=== PATIENT | male | born 1975 | race Caucasian/White ===

== ENCOUNTER 2017-04-14 16:45 | Emergency (ER) | payer OTHER ==
[2017-04-14 17:11] VITALS: BP 117/71
--- NOTE | 2017-04-14 17:11 | UC ---
Abdominal Pain Male HPI - HPI Summary HPI Summary: 41 YEAR OLD MALE WITH A HISTORY OF CROHNS DISEASE AND BOWEL RESECTION PRESENTS WITH COMPLAINS OF SEVERE RLQ PAIN. - History of Current Complaint Chief Complaint: UCGI Stated Complaint: ABD PAIN Time Seen by Provider: 04/14/17 17:10 Hx Obtained From: Patient Onset/Duration: Sudden Onset Severity Initially: Moderate Severity Currently: Moderate Pain Scale Used: 0-10 Numeric - 7 Location: Discrete At: RLQ - Allergies/Home Medications Allergies/Adverse Reactions: Allergies Allergy/AdvReac Type Severity Reaction Status Date / Time Cat Hair Extract Allergy Unknown Verified 04/14/17 18:26 Reaction Details Dust Mite Extract Allergy Unknown Verified 04/14/17 18:26 Reaction Details carrots Allergy Airway Uncoded 04/14/17 18:26 Obstruction celery Allergy Airway Uncoded 04/14/17 18:26 Obstruction parsley Allergy Airway Uncoded 04/14/17 18:26 Obstruction radish Allergy Unknown Uncoded 04/14/17 18:26 Reaction Details Home Medications: Home Medications Cetirizine* [ZyrTEC 10 MG TAB*] 1 tab PO BEDTIME 04/14/17 [History Confirmed ] Fluticas/Salmet 115/21 HFA(NF) [Advair HFA 115/21 (NF)] 1 puff BOTH NARES BID [History Confirmed 04/14/17] Folic Acid TAB* [Folvite TAB*] 1 tab PO BEDTIME 04/14/17 [History Confirmed ] Levothyroxine TAB* [Synthroid 150 MCG TAB*] 1 tab PO BEDTIME 04/14/17 [History Confirmed 04/14/17] Magnesium Hydroxide LIQ* [Milk of Magnesia LIQ*] 1 udc PO TID PRN 04/14/17 [ History Confirmed 04/14/17] Mesalamine CAP (NF) [Pentasa(NF)] 3 tab PO BID 04/14/17 [History Confirmed 04/14] Montelukast Sodium TAB* [Singulair 10 MG TAB*] 1 tab PO BEDTIME 04/14/17 [ History Confirmed 04/14/17] Multiple Vitamins W/ Minerals [Multivitamin Adults] 1 tab PO BEDTIME 04/14/17 [ History Confirmed 04/14/17] Psyllium [Metamucil] 3 tab PO BID 04/14/17 [History Confirmed 04/14/17] PMH/Surg Hx/FS Hx/Imm Hx Previously Healthy: Yes - Surgical History Surgical History: Yes Surgery Procedure, Year, and Place: SURGERIES FOR SHIVAM'S DIEASES (RESECTION OF ILIUM AND SECOND ONE WAS TO REPAIR AN ADHESIO) - spring - Social History Alcohol Use: None Substance Use Type: None Smoking Status (MU): Never Smoked Tobacco Review of Systems Constitutional: Negative Skin: Negative Eyes: Negative ENT: Negative Respiratory: Negative Cardiovascular: Negative Gastrointestinal: Abdominal Pain - RLQ PAIN Genitourinary: Negative Motor: Negative Neurovascular: Negative Musculoskeletal: Negative Neurological: Negative Psychological: Negative All Other Systems Reviewed And Are Negative: Yes Physical Exam Triage Information Reviewed: Yes Vital Signs: Initial Vital Signs Temp 36.5 C 04/14/17 17:00 Pulse 68 04/14/17 17:00 Resp 16 04/14/17 17:00 BP 117/71 04/14/17 17:00 Pulse Ox 100 04/14/17 17:00 Vital Signs Reviewed: Yes Eye Exam: Normal ENT Exam: Normal Dental Exam: Normal Neck exam: Normal Neck: Positive: 1 Respiratory Exam: Normal Cardiovascular Exam: Normal Abdomen Description: Positive: Other: - RLQ Musculoskeletal Exam: Normal Neurological Exam: Normal Psychological Exam: Normal Skin Exam: Normal Abd Pain Male Course/Dx - Differential Dx/Clinical Impression Provider Diagnoses: RLQ PAIN Discharge - Discharge Plan Condition: Stable Disposition: OTHER Discharge Disposition Comment: PLEASE GO TO ER TO RULE OUT BOWEL OBSTRUCTION. Patient Education Materials: Acute Abdominal Pain (ED) Referrals: Cary Cruz MD [Primary Care Provider] - Additional Instructions: PLEASE GO TO ER TO RULE OUT BOWEL OBSTRUCTION.
== END 2017-04-14 17:23 ==
LOC: UCEAST 16:45
DX: R10.31 Right lower quadrant pain (principal); K50.90 Crohn's disease, unspecified, without complications
CPT/HCPCS: 99211; G0463

== ENCOUNTER 2017-04-14 17:37 | Observation (INO) | payer OTHER ==
[2017-04-14] MEDS ORDERED: Ondansetron INJ* 2 MG/ML VIAL IV ONE ×2 (18:16→20:24)
[2017-04-14] MEDS ORDERED: NS 0.9% 1000 ML* 1,000 ML IV ONE ×2 (18:16→20:22)
[2017-04-14] MEDS ORDERED: HYDROmorphone INJ* 1 MG/ML CARPUJECT SYRINGE IV ONE ×2 (18:16→20:22)
[2017-04-14 19:07] LABS: Hematocrit 51 % (42-52); Hemoglobin 17.6 g/dl (14.0-18.0); Mean Corpuscular HGB Conc 35 g/dl (31-36); Mean Corpuscular Hemoglobin 29 pg (27-31); Mean Corpuscular Volume 85 fL (80-94); Mean Platelet Volume 8 um3 (7.4-10.4); Red Blood Count 5.99 10^6/ul (4.0-5.4); Red Cell Distribution Width 14 % (10.5-15); White Blood Count 11.9 10^3/ul (3.5-10.8)
[2017-04-14 19:20] LABS: Albumin 5.1 g/dL (3.2-5.2); BUN/Creatinine Ratio 12.7 (8-20); C Reactive Protein 5.13 mg/L (< 5.00); Calcium 10.4 mg/dL (8.6-10.3); EGFR African American 81.5 (>60); EGFR Non-African American 63.4 (>60); Globulin 3.5 g/dL (2-4); Potassium 3.8 mmol/L (3.5-5.0); Total Bilirubin 0.8 mg/dL (0.2-1.0); Total Protein 8.6 g/dL (6.4-8.9)
[2017-04-14] MEDS ORDERED: Iohexol 300* (CONTRAST) 10 ML SDV IV ONE (20:59)
--- NOTE | 2017-04-14 21:17 | ED ---
John Sheffield Abhishek, scribed for Mukesh Pereyra MD on 04/14/17 at 1824 . Abdominal Pain/Male - HPI Summary HPI Summary: This patient is a 41 year old M presenting to [facility] accompanied by female with a chief complaint of abd pain since 1743. The CC is described as getting gradually worse, diffusive, worse since today, dull. The patient rates the pain 5/10 in severity Symptoms aggravated by nothing. Symptoms alleviated by nothing. Patient reports N/V onset of this afternoon, and chills. Patient denies dysuria, and hematochezia. PMHx includes Crohns disease. - History of Current Complaint Chief Complaint: EDNauseaVomitDiarrh Stated Complaint: ABD PAIN/VOMITING-SENT BY CC Time Seen by Provider: 04/14/17 17:52 Hx Obtained From: Patient Onset/Duration: Gradual Onset - this afternoon, Lasting Hours - since this afternoon, Still Present Timing: Constant Severity Initially: Moderate Severity Currently: Moderate Pain Intensity: 5 Pain Scale Used: 0-10 Numeric Location: Diffuse Character: Dull Aggravating Factor(s): Nothing Alleviating Factor(s): Nothing Associated Signs And Symptoms: Positive: Nausea, Vomiting, Other - chills. Negative: Blood in Stool, Urinary Symptoms - Allergies/Home Medications Allergies/Adverse Reactions: Allergies Allergy/AdvReac Type Severity Reaction Status Date / Time Cat Hair Extract Allergy Unknown Verified 04/14/17 18:26 Reaction Details Dust Mite Extract Allergy Unknown Verified 04/14/17 18:26 Reaction Details carrots Allergy Airway Uncoded 04/14/17 18:26 Obstruction celery Allergy Airway Uncoded 04/14/17 18:26 Obstruction parsley Allergy Airway Uncoded 04/14/17 18:26 Obstruction radish Allergy Unknown Uncoded 04/14/17 18:26 Reaction Details PMH/Surg Hx/FS Hx/Imm Hx Endocrine/Hematology History: Denies: Hx Diabetes, Hx Thyroid Disease Cardiovascular History: Denies: Hx Hypertension Respiratory History: Reports: Hx Asthma Denies: Hx Chronic Obstructive Pulmonary Disease (COPD) GI History: Reports: Hx Crohn's Disease Denies: Hx Ulcer - Surgical History Surgery Procedure, Year, and Place: SURGERIES FOR SHIVAM'S DIEASES (RESECTION OF ILIUM AND SECOND ONE WAS TO REPAIR AN ADHESIO) - spring Infectious Disease History: Denies: Hx Clostridium Difficile, Hx Hepatitis, Hx Human Immunodeficiency Virus (HIV), Hx of Known/Suspected MRSA, Hx Shingles, Hx Tuberculosis, Hx Known/ Suspected VRE, Hx Known/Suspected VRSA, History Other Infectious Disease - Social History Alcohol Use: None Substance Use Type: Reports: None Smoking Status (MU): Never Smoked Tobacco Review of Systems Positive: Chills Eyes: Negative ENT: Negative Cardiovascular: Negative Respiratory: Negative Positive: Abdominal Pain - diffusive, Vomiting, Nausea Genitourinary: Other - Negative: urinary symptoms and hematochezia Musculoskeletal: Negative Skin: Negative Neurological: Negative Psychological: Normal All Other Systems Reviewed And Are Negative: Yes Physical Exam - Summary Physical Exam Summary: Appearance: Well-appearing, no pain distress IF BMI > 30 = obese Skin: Warm, dry, color reflects adequate perfusion Head/face: Nml head/face Eyes: Nml eyes ENT: Nml ENT Neck: Supple, non-tender Respiratory: CTA, breath sound present Cardiovascular: RRR Abdomen: Abd soft, non-tender, Bowel: Bowel sounds hyperactive Musculoskeletal: Mildly tender diffusive to the ab Neurological: Nml neuro (unless it is a neuro Pt, then click the first 4) Psychiatric: Nml psychiatric, affect/mood appropriate Triage Information Reviewed: Yes Vital Signs On Initial Exam: Initial Vitals Temp Pulse Resp BP Pulse Ox 97.6 F 69 18 113/82 97 04/14/17 17:43 04/14/17 17:43 04/14/17 17:43 04/14/17 17:43 04/14/17 17:43 Vital Signs Reviewed: Yes Diagnostics - Vital Signs Vital Signs Temp Pulse Resp BP Pulse Ox 04/14/17 17:43 97.6 F 69 18 113/82 97 - Laboratory Lab Results: Lab Results 04/14/17 04/14/17 04/14/17 Range/Units 18:48 18:48 18:48 WBC 11.9 H (3.5-10.8) 10^3/ul RBC 5.99 H (4.0-5.4) 10^6/ul Hgb 17.6 (14.0-18.0) g/dl Hct 51 (42-52) % MCV 85 (80-94) fL MCH 29 (27-31) pg MCHC 35 (31-36) g/dl RDW 14 (10.5-15) % Plt Count 241 (150-450) 10^3/ul MPV 8 (7.4-10.4) um3 Neut % (Auto) 87.0 H (38-83) % Lymph % (Auto) 8.5 L (25-47) % [place] % (Auto) 4.1 (1-9) % Eos % (Auto) 0.2 (0-6) % Baso % (Auto) 0.2 (0-2) % Absolute Neuts (auto) 10.3 H (1.5-7.7) 10^3/ul Absolute Lymphs (auto) 1.0 (1.0-4.8) 10^3/ul Absolute Monos (auto) 0.5 (0-0.8) 10^3/ul Absolute Eos (auto) 0 (0-0.6) 10^3/ul Absolute Basos (auto) 0 (0-0.2) 10^3/ul Absolute Nucleated RBC 0.04 10^3/ul Nucleated RBC % 0.4 Sodium 136 (133-145) mmol/L Potassium 3.8 (3.5-5.0) mmol/L Chloride 101 (101-111) mmol/L Carbon Dioxide 27 (22-32) mmol/L Anion Gap 8 (2-11) mmol/L BUN 16 (6-24) mg/dL Creatinine 1.26 H (0.67-1.17) mg/dL Est GFR ( Amer) 81.5 (>60) Est GFR (Non-Af Amer) 63.4 (>60) BUN/Creatinine Ratio 12.7 (8-20) Glucose 130 H (70-100) mg/dL Lactic Acid 1.6 (0.5-2.0) mmol/L Calcium 10.4 H (8.6-10.3) mg/dL Total Bilirubin 0.80 (0.2-1.0) mg/dL AST 21 (13-39) U/L ALT 37 (7-52) U/L Alkaline Phosphatase 86 (34-104) U/L C-Reactive Protein 5.13 H (< 5.00) mg/L Total Protein 8.6 (6.4-8.9) g/dL Albumin 5.1 (3.2-5.2) g/dL Globulin 3.5 (2-4) g/dL Albumin/Globulin Ratio 1.5 (1-3) Lipase 31 (11.0-82.0) U/L Result Diagrams: 04/14/17 18:48 04/14/17 18:48 Lab Statement: Any lab studies that have been ordered have been reviewed, and results considered in the medical decision making process. Abdominal Pain Fem Course/Dx - Course Course Of Treatment: Mr. Watt presented with diffuse abdominal pain and vomiting. His WBCs are slightly elevated and his symptoms responded well to meds. He is awaiting a CT. - Diagnoses Provider Diagnoses: Abdominal pain Discharge - Discharge Plan Condition: Stable Disposition: OTHER Discharge Disposition Comment: Change of Shift The documentation as recorded by the John hendrix Abhishek accurately reflects the service I personally performed and the decisions made by me, Mukesh Pereyra MD.
[2017-04-14 21:54] LABS: Urine Bilirubin Negative (Negative); Urine Glucose Negative (Negative); Urine Nitrite Negative (Negative)
[2017-04-15] MEDS ORDERED: NS 0.9% 1000 ML* 1,000 ML IV SCH (01:15)
--- NOTE | 2017-04-15 01:18 | ED ---
Pro Sheffield Nikita, scribed for Eduard Quarles MD on 04/14/17 at 2340 . Progress - Progress Note Progress Note: Abd/Pel CT reveals there are mild atelectatic changes at the right lung base. The visualized lung bases are otherwise clear. There is a hypodense lesion at the medal dome of the liver measuring 3.8 x 2.8 cm axially. Attenuation measurements are not compatible with a simple cyst. this is causing compression of the IVC. Consider further evaluation with MRI to better characterize. There are fatty changes of the liver with an area of hypoattenuation in the left lobe adjacent to the gallbladder fossa possibly an area of more pronounced fatty infiltration. Small cyst in the upper pole of the left kidney measuring 1.2 cm and an additional subcentimeter hypodensity which is likely a cyst although too small to characterize. The upper abdominal visceral organs are otherwise unremarkable. there are multiple distended loops of small bowel with scattered air-fluid levels. A discrete transition point is not identified. Findings may represent postsurgical ileus. There has been partial right colectomy. There is moderate fecal retention in the right colon. Mild intraloop ascites predominantly in the right abdomen and trace ascites in the right paracolic gutter. Small collection of ascites in the pelvis. No intra-abdominal free air. 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 First re-eval: Pt says he still does not feel well. Discussed plan for admission. Consulted Dr. Caruso at 0115 who accepts pt for admission. Course/Dx - Course Course Of Treatment: DISCUSSED RESULTS WITH PATIENT. ADMIT HOSPITALIST - Diagnoses Provider Diagnoses: Abdominal pain, SBO (small bowel obstruction) The documentation as recorded by the Pro hendrix Nikita accurately reflects the service I personally performed and the decisions made by , Eduard Quarles MD.
[2017-04-15] MEDS ORDERED: Ondansetron INJ* 2 MG/ML VIAL IV PRN (02:10)
[2017-04-15] MEDS: Pantoprazole IV* 40 MG IV SCH (03:47)
[2017-04-15] MEDS: D5NS 0.9% 1000 ML BAG* 1,000 ML IV SCH ×3 (03:49→19:42)
[2017-04-15 04:05] LABS: Hematocrit 43 % (42-52); Hemoglobin 14.5 g/dl (14.0-18.0); Mean Corpuscular HGB Conc 34 g/dl (31-36); Mean Corpuscular Hemoglobin 29 pg (27-31); Mean Corpuscular Volume 86 fL (80-94); Mean Platelet Volume 8 um3 (7.4-10.4); Red Blood Count 5.01 10^6/ul (4.0-5.4); Red Cell Distribution Width 14 % (10.5-15); White Blood Count 3.9 10^3/ul (3.5-10.8)
[2017-04-15 04:12] LABS: BUN/Creatinine Ratio 19.3 (8-20); Calcium 8.1 mg/dL (8.6-10.3); EGFR African American 96.4 (>60); EGFR Non-African American 74.9 (>60)
--- NOTE | 2017-04-15 05:15 | HP ---
HISTORY AND PHYSICAL: ADDENDUM: DATE OF ADMISSION: 04/15/17 ASSESSMENT/PLAN: Please note that in the body of the report of the patient's CT scan read, the patient was noted to have hypodense lesion in the medial dome of the liver measuring 3.8 x 2.8 cm actually. Attenuation measurements were not compatible with simple cyst. This was causing compression of the IVC. Consider further evaluation with MRI to better characterize. There were fatty changes of the liver with an area of hyperattenuation of the left lobe adjacent to the gallbladder foci, possibly in the area of most pronounced fatty infiltration. There was a small cyst in the upper lobe of the left kidney measuring 1.2 cm and an additional subcentimeter hypodensity, which was likely a cyst, although too small to characterize. In regards to the density and possibility of MRI of the abdomen, I will ask the gastroenterology business risk consultant in the morning to yield an opinion. For patient's asthma, the patient is going to be placed on Dulera as Advair is not on formulary in our facility. [id number]/CPS #: [id number] MTDD
[2017-04-15] MEDS: Levothyroxine INJ* 100 MCG/5 ML VIAL IV SCH (06:32)
--- NOTE | 2017-04-15 07:27 | RAD ---
INDICATION: Diffuse abdominal pain. COMPARISON: There are no prior studies available for comparison. TECHNIQUE: A CT scan of the abdomen and pelvis was performed with intravenous and oral contrast following intravenous injection of 109 ml of Omnipaque 300 nonionic contrast. Contiguous axial sections were obtained from the lung bases through the symphysis pubis. Images were reconstructed in the coronal and sagittal planes. FINDINGS: The lung bases are clear. No pleural effusion is present. The liver and spleen are normal in size. There are 2 hypodense hepatic lesions. One is located in the anterior aspect of the liver adjacent to the gallbladder measuring 0.9 cm in size and the other is located in the posterior aspect of the liver adjacent to the confluence of the hepatic veins. This measures 3.6 x 2.5 x 4.2 cm in size and measures greater than fluid density. There appears to be some peripheral nodular enhancement on the coronal images suggesting the possibility of a hemangioma although nonspecific. This is causing compression of the intrahepatic portion of inferior vena cava. No calcified gallstones are seen. The pancreas appears to be within normal limits. The kidneys and adrenal glands are normal in size. No hydronephrosis is seen. There is a small 1.3 cm cyst arising in the upper pole of the left kidney. The aorta is normal in caliber and demonstrates homogeneous contrast opacification. No significant enlarged retroperitoneal lymph nodes are seen. The stomach is mildly distended. There is mild to moderate distention of the small bowel without a discrete transition point. The patient is status post removal of the majority of the ascending colon. The colon is nondistended. There is no evidence for diverticulitis or colitis. There is a small amount of free intraperitoneal fluid adjacent to several small bowel loops and within the dependent pelvis. There is bilateral spondylolysis with at the L5 level and very mild anterior grade 1 spondylolisthesis at the L5-S1 level. IMPRESSION: 1. MILD DIFFUSE DISTENTION OF THE SMALL BOWEL SUGGESTIVE OF A PARALYTIC ILEUS LESS LIKELY A LOW-GRADE OBSTRUCTION. 2. SMALL AMOUNT OF ASCITES. 3. INDETERMINATE HEPATIC LESION POSSIBLY REPRESENTING A HEMANGIOMA COMPRESSING INTRAHEPATIC PORTION OF THE INFERIOR VENA CAVA. RECOMMEND AN MRI WITHOUT AND WITH CONTRAST OF THE LIVER FOR FURTHER EVALUATION. 4. BILATERAL SPONDYLOLYSIS AT THE L5 LEVEL AND GRADE I ANTERIOR SPONDYLOLISTHESIS AT THE L5-S1 LEVEL.
--- NOTE | 2017-04-15 07:42 | HP ---
CC: Dr. Farmer; Dr. Cary Cruz * HISTORY AND PHYSICAL: DATE OF ADMISSION: 04/15/17 PRIMARY CARE PROVIDER: Dr. Cary Cruz CHIEF COMPLAINT: Abdominal pain. HISTORY OF PRESENT ILLNESS: Elijah Watt is a 41-year-old male with history of Crohn's since 1993, who presented to the hospital complaining of abdominal pain. The abdominal pain started on 04/14/17 in the morning. The patient stated that he felt like he was constipated and he took milk of magnesia and had subsequently two small and one regular bowel movement. Despite that, his bout of lower abdominal pain continued to persist and got worse. By the end of the day, he started vomiting and [facility]. The patient stated that he is still able to pass some flatus. He is nauseated and belching frequently. CT of abdomen and pelvis showed small bowel obstruction. He is going to be placed on overnight observation. PAST MEDICAL HISTORY: 1. Crohn's diagnosed in 1993, status post terminal ileum and sacrum resection with subsequent development of postoperative abscess and another exploratory laparotomy resection in the same year. 2. History of hypothyroidism. 3. History of asthma. MEDICATIONS AT HOME: Include: 1. Milk of magnesia on p.r.n. basis. 2. Zyrtec 10 mg daily. 3. Advair 115/21 one puff b.i.d. 4. Folic acid one tablet at bedtime. 5. Levothyroxine 150 mcg daily. 6. Pentasa 3 tablets b.i.d. The patient stopped this medication approximately 6 months ago and took just one dose on 04/14/17. 7. Singulair 10 mg daily. 8. Multivitamin one tablet daily. 9. a on p.r.n. basis. ALLERGIES: DUST and . FAMILY HISTORY: Positive for mother with diabetes, father healthy. SOCIAL HISTORY: The patient denies any tobacco, alcohol, or drug use. He is a professor of [employer]. He is and his is his surrogate. REVIEW OF SYSTEMS: Please see history of present illness. The patient stated that he has not had any problems with his Crohn's for over 10 years and in fact he stopped taking his mesalamine due to that approximately 6 months ago. He has been doing fine otherwise. He denies any abdominal pain for the past 10 years until yesterday. At this baseline, he has approximately two bowel movements a day and no blood in stool. Approximately 2 weeks ago, he had a cold that lasted a week. He denies any fevers. The remaining 12 systems were reviewed with the patient and were otherwise negative. PHYSICAL EXAMINATION GENERAL: The patient is a very pleasant 41-year-old male who is in no acute distress. Alert and awake and oriented x3. VITAL SIGNS: Blood pressure of 104/67, heart rate of 61 and regular, respiratory rate of 16, oxygen saturation 93% on room air, temperature of 96.3. HEENT: Head atraumatic, normocephalic. Eyes: Pupils are equal and reactive to light and accommodation. Oropharynx clear. Mucosa moist. NECK: Supple. No JVD. No bruits bilaterally. RESPIRATORY: Clear to auscultation bilaterally. CARDIOVASCULAR: Regular rate and rhythm. No murmur. ABDOMEN: Soft. Mildly tender in bilateral lower quadrants with no rebound, no guarding. Bowel sounds are present in all 4 quadrants. EXTREMITIES: There is no edema. Pulses are +2 bilaterally. No clubbing or cyanosis. NEURO EVALUATION: Speech is clear. Cranial nerves II through XII are grossly intact. Motor strength is 5/5 bilaterally. SKIN: On evaluation of the skin, no ecchymotic areas or rashes noted. DIAGNOSTIC STUDIES/LAB DATA: Laboratory data shows sodium of 136, potassium of 3.8, chloride 101, carbon dioxide 27, BUN 16, creatinine 1.26. Liver function tests are unremarkable. Calcium of 10.4, C-reactive protein of 5.1. White blood cell count of 11.9, hemoglobin of 17.6, hematocrit of 51, and platelets of 241. Urinalysis: Trace ketones, otherwise unremarkable. CT of the abdomen and pelvis showed small bowel obstruction. ASSESSMENT AND PLAN: 1. The patient's small bowel obstruction appears not to be related due to Crohn 's. His C-reactive protein is relatively low. It is interesting though that the patient has not had any abdominal problems for the past 10 years and he just stopped taking his Pentasa within the past 6 months. I think the patient will require a Gastroenterology evaluation in the morning. For the time being, the patient is going to be placed on NPO apart from sips of water. Apart from bowel rest, he is going to be placed on intravenous fluids and Protonix intravenously for GI prophylaxis. 2. For his hypothyroidism, Synthroid is going to be converted to IV when he is NPO. 3. The patient's hypercalcemia and acute kidney injury is likely due to dehydration, which will be treated with intravenous fluids. 4. For DVT prophylaxis, the patient is ambulatory and low risk. 5. The patient is a full code. His surrogate is his , Maryellen. TIME SPENT: Approximately 62 minutes were spent on admission of this patient, more than half that time was spent [id number] with the patient during the interview and physical exam. [id number]/[facility] #: [id number] MTDD
[2017-04-15] MEDS: Ciprofloxacin 400MG IVPREMIX(* 400 MG/200 ML BAG IVPB SCH ×2 (08:30→21:47)
[2017-04-15] MEDS: Morphine INJ* 2 MG/ML 1 ML SYRINGE (TWO MG - NEW SYRINGE VERSION) IV PRN ×2 (08:31→21:46)
[2017-04-15] MEDS ORDERED: Influenza VAC *QUAD* 2017-18* 0.5 ML SYRINGE IM ONE (09:00)
[2017-04-15] MEDS: metroNIDAZOLE IV 500 MG/100ML* 500 MG/100 ML BAG IVPB SCH ×2 (09:58→16:59)
[2017-04-15] MEDS: Mometasone/Formoter 100/5 MDI INH SCH ×2 (11:11→20:34)
--- NOTE | 2017-04-15 16:24 | PN ---
Subjective Date of Service: 04/15/17 Interval History: This is a 41 yo male with Crohn's disease who presented with c/o abd pain and admitted with concerns for partial SBO. Patient reports that his abd pain has improved since admission. He has had multiple watery BMs throughout the day. No n/v. No further fevers. Objective Active Medications: Sodium Chloride (Ns 0.9% 1000 Ml*) 1,000 mls @ 150 mls/hr IV PER RATE [facility] Dextrose/Sodium Chloride (D5ns 0.9% 1000 Ml Bag*) 1,000 mls @ 150 mls/hr IV PER RATE [facility] Last Admin: 04/15/17 11:51 Dose: 150 mls/hr Ciprofloxacin/Dextrose (Cipro 400 Mg Ivpremix(*)) 400 mg in 200 mls @ 200 mls/ hr IVPB Q12H [facility] Last Admin: 04/15/17 08:30 Dose: 200 mls/hr Metronidazole/Sodium Chloride (Flagyl 500 Mg Ivpb*) 500 mg in 100 mls @ 100 mls /hr IVPB Q8H [facility] Last Admin: 04/15/17 09:58 Dose: 100 mls/hr Levothyroxine Sodium (Synthroid Inj*) 75 mcg IV 0600 [facility] Last Admin: 04/15/17 06:32 Dose: 75 mcg Mometasone Furoate/Formoterol Fumar (Dulera 100/5 Mdi*) 2 puff INH BID [facility] Last Admin: 04/15/17 11:11 Dose: 2 puff Morphine Sulfate (Morphine Inj (Syringe)*) 2 mg IV Q4H PRN PRN Reason: PAIN Last Admin: 04/15/17 08:31 Dose: 2 mg Ondansetron HCl (Zofran Inj*) 4 mg IV Q4H PRN PRN Reason: NAUSEA/VOMITING Pantoprazole Sodium (Protonix Iv*) 40 mg IV Q24H [facility] Last Admin: 04/15/17 03:47 Dose: 40 mg Vital Signs: Temp Pulse Resp BP Pulse Ox 98.3 F 73 14 104/67 96 04/15/17 15:05 04/15/17 15:05 04/15/17 15:05 04/15/17 15:05 04/15/17 15:05 Appearance: Well appearing middle aged male in NAD Respiratory: Symmetrical Chest Expansion and Respiratory Effort, Clear to Auscultation Cardiovascular: NL Sounds; No Murmurs; No JVD, RRR Abdominal: - - abd slightly distended, hypoactive BS, mild diffuse TTP Extremities: No Edema Skin: No Rash or Ulcers Neurological: Alert and Oriented x 3 Result Diagrams: 04/15/17 03:38 04/15/17 03:38 Additional Lab and Data: . Diagnostic Imaging: CT abd/pelvis - per radiology report there is mild diffuse dilatation of the SB but per personal review there appears to be transition point with a decompressed loop behind the bladder. There is a small amount of ascites with a hepatic lesion partially compressing the IVC Assess/Plan/Problems-Billing Assessment: This is 41 yo male with Crohn's who presented with c/o abd pain, admitted with concerns for partial obstruction. - Patient Problems (1) Partial small bowel obstruction Comment: Radiology read suggests possible ileus, but personal review and history are more c/w partial SBO Noted improvement and tolerating clear liquids Will advance to full liquids Spoke with GI who does not feel his acute presentation is related to a Crohn's flare No steroid indicated, but empirically started on Flagyl and Cipro due to fever at time of admission Will repeat KUB in the am (2) Hepatic lesion Comment: Recommend dedicated MRI as an outpt with and without contrast to evaluate further (3) Crohns disease Comment: Stopped Pentasa ~6 mo Acute presentation does not appear to be Crohn's related (4) Full code status (5) DVT prophylaxis Comment: Regular ambulation, low risk Status and Disposition: Observation. Anticipate dc tomorrow
--- NOTE | 2017-04-15 23:25 | CONS ---
CC: Dr. Caruso* CONSULTATION REPORT: DATE OF CONSULTATION: 04/15/17 REQUESTING PHYSICIAN: Dr. Caruso. INDICATION: Crohn's, partial small bowel obstruction. NARRATIVE: Mr. Watt is a very pleasant 41-year-old gentleman well known to myself. I have seen him in the outpatient setting before. He has a history of ileocolonic Crohn's disease. He had surgery in 1993, at which time had an ileocecectomy in 1993. In 1999 was his last hospitalization and 2010 was the last colonoscopy. He states that he stopped his Pentasa approximately 6 months ago, had been doing well up until yesterday afternoon. He developed mild abdominal discomfort. He felt that he was becoming constipated and took some laxatives; however, symptoms progressed. He then developed nausea and then vomiting and was concerned about Crohn's flare, came to the emergency room. In the ED, a CT revealed partial small bowel obstruction. He was admitted to the hospital for treatment of that. At this point, he is feeling better. He has been on the fluids and clear liquid diet. He states that he feels 70% better at this time. He has no nausea and no vomiting. He is passing flatus. He is ambulatory. He does not really think that this feels like his typical Crohn's flare, but last one was 20 years ago and he cannot quite remember. He did have a fever yesterday. PAST MEDICAL HISTORY: Significant for asthma, hypothyroid, Crohn's disease. PAST SURGICAL HISTORY: Please see the HPI. MEDICATIONS AT HOME: He was on Pentasa 3 per day. ALLERGIES: He has no known drug allergies. FAMILY HISTORY: No IBD in the family. REVIEW OF SYSTEMS: 12 systems were reviewed, other than that mentioned in the HPI were unremarkable. PHYSICAL EXAMINATION: Temperature is 98.3, blood pressure is 104/67, pulse is 73. General: Well-appearing male, in no apparent distress, alert, oriented, pleasant, and fluent. HEENT: Mucous membranes are moist without lesions, ulcers, or exudate. Neck is supple. Trachea is midline. Head is normocephalic , atraumatic. Heart: Regular rate and rhythm. Lungs: Clear to auscultation. Abdomen: Softly distended. Positive bowel sounds. No rebound. No guarding. No masses. Skin is warm and dry. DIAGNOSTIC STUDIES/LABORATORY DATA: Labs of note, his white count is down to 3.9, hemoglobin is 14.5, platelets of 180. BUN is 21, creatinine is 1.09. Glucose of 151. CT shows mild distention of the small bowel and a potential hemangioma. ASSESSMENT AND PLAN: This is a 41-year-old gentleman with a history of Crohn's who presents most likely with a partial small bowel obstruction secondary to adhesions. It really does not seem like his Crohn's disease. I do not think we need to start him on prednisone at this point nor resume his Pentasa. Most likely, I would recommend we continue with his fluids and continue to advance his diet. I will hold on any Crohn's medicine at this point. We will continue to follow along. If he continues to improve, he can likely be discharged to home tomorrow. [id number]/[facility] #: [id number] MARIUSZ
[2017-04-16] MEDS: metroNIDAZOLE IV 500 MG/100ML* 500 MG/100 ML BAG IVPB SCH (01:07)
[2017-04-16] MEDS: Pantoprazole IV* 40 MG IV SCH (03:10)
[2017-04-16] MEDS: D5NS 0.9% 1000 ML BAG* 1,000 ML IV SCH (04:32)
[2017-04-16] MEDS: Levothyroxine INJ* 100 MCG/5 ML VIAL IV SCH (06:17)
[2017-04-16 06:47] LABS: Hematocrit 40 % (42-52); Hemoglobin 13.3 g/dl (14.0-18.0); Mean Corpuscular HGB Conc 34 g/dl (31-36); Mean Corpuscular Hemoglobin 29 pg (27-31); Mean Corpuscular Volume 86 fL (80-94); Mean Platelet Volume 7 um3 (7.4-10.4); Red Blood Count 4.59 10^6/ul (4.0-5.4); Red Cell Distribution Width 14 % (10.5-15); White Blood Count 4.3 10^3/ul (3.5-10.8)
[2017-04-16 07:01] LABS: BUN/Creatinine Ratio 7.4 (8-20); Calcium 8.2 mg/dL (8.6-10.3); EGFR African American 114.3 (>60); EGFR Non-African American 88.9 (>60); Potassium 3.8 mmol/L (3.5-5.0)
[2017-04-16 07:50] VITALS: BP 99/59
[2017-04-16] MEDS: Ciprofloxacin 400MG IVPREMIX(* 400 MG/200 ML BAG IVPB SCH (08:24)
--- NOTE | 2017-04-16 08:26 | RAD ---
INDICATION: Small bowel obstruction COMPARISON: CT abdomen pelvis April 14, 2017 that shows multiple dilated loops of small bowel up to 3.4 cm in diameter. TECHNIQUE: 3 views the abdomen were obtained. FINDINGS: In the left hemiabdomen there are air-filled loops of small bowel measuring up to 4.2 cm in diameter. There is gas and stool overlying much of the colon, however there is a paucity of gas overlying the expected location of the rectum. There is no definite free air beneath either diaphragm. IMPRESSION: PATHOLOGICALLY DILATED LOOPS OF AIR-FILLED SMALL BOWEL IN THE LEFT ABDOMEN MEASURING UP TO 4.2 CM IN DIAMETER, BUT WITH GAS SEEN THROUGHOUT MUCH OF THE PROXIMAL COLON. APPEARANCE IS CONSISTENT WITH PARTIAL BOWEL OBSTRUCTION VERSUS ILEUS.
[2017-04-16] MEDS: Mometasone/Formoter 100/5 MDI INH SCH (09:32)
--- NOTE | 2017-04-17 04:23 | DS ---
CC: Dr. Cary Cruz; Dr. Farmer * DISCHARGE SUMMARY: DATE OF ADMISSION: 04/15/17 DATE OF DISCHARGE: 04/16/17 PRIMARY CARE PROVIDER: Dr. Cary Cruz. CONSULTING AND PRIMARY MEDICAL TECHNOLOGIST: Dr. Farmer. DISCHARGING PROVIDER: AVELINA Padilla SUPERVISING PHYSICIAN: Dr. Kiley Lamb * (DICTATED BY AVELINA PADILLA) PRIMARY DISCHARGE DIAGNOSES: 1. Partial small bowel obstruction. 2. Hepatic lesion that requires outpatient MRI imaging. SECONDARY DISCHARGE DIAGNOSIS: Crohn's disease without acute flare, followed by Dr. Farmer. DISCHARGE MEDICATIONS: 1. Zyrtec 10 mg p.o. at bedtime. 2. Advair 1 puff inhaled twice daily. 3. Folic acid 1 tablet p.o. at bedtime. 4. Levothyroxine 150 mcg p.o. at bedtime. 5. Magnesium hydroxide 30 mL p.o. 3 times daily as needed. 6. Cipro 500 mg p.o. twice daily x5 days. 7. Flagyl 500 mg p.o. 3 times daily x5 days. 8. Singulair 10 mg p.o. at bedtime. 9. Multivitamin 1 tablet p.o. at bedtime. Medication changes: 1. Flagyl x5 days. 2. Cipro x5 days. HOSPITAL IMAGIN. CT of the abdomen and pelvis shows mild diffuse distention of the small bowel suggestive of a paralytic ileus or a low-grade obstruction with a small amount of ascites, also indeterminate hepatic lesion, possibly representing a hemangioma compressing intrahepatic portion of the inferior vena cava, recommend MRI with and without contrast of the liver for further evaluation. Per personal review of the imaging study, there does appear to be a decompressed loop of small bowel in the inferior portion of the abdomen behind the bladder making this more consistent with a partial small bowel obstruction rather than ileus. 2. KUB shows dilated loops of air filled small bowel in the left abdomen measuring up to 4.2 cm in diameter, but gas seen throughout much of the proximal colon consistent with a partial small bowel obstruction versus ileus. HOSPITAL COURSE: This is a 41-year-old gentleman with a known history of Crohn' s disease, who presented to the emergency department with complaints of abdominal pain and bloating. The patient had stopped Pentasa about 6 months prior as his symptoms from Crohn's had been well controlled for quite sometime. He reported associated nausea and vomiting and was still having a bowel movement at the time of admission. Initial labs showed a mild leukocytosis with a white blood cell count of 11,900. Chemistry panel showed mild acute kidney injury with a creatinine of 1.26, but the inflammatory markers were near normal with a CRP measured at 5.13. CT imaging was consistent with likely partial small bowel obstruction versus ileus. Shortly after arriving on the surgical floor, the patient spiked a fever and he was empirically started on Cipro and Flagyl. He continued to have some watery diarrhea. Gastroenterology was consulted to help to discern whether acute presentation was a result of the Crohn's flare. Given his appearance on imaging and the near normal inflammatory markers, his acute presentation was felt not to represent a flare of his Crohn's, but more consistent with a partial small bowel obstruction. The patient was managed with IV fluids, eventually advanced with his diet to the point that he was tolerating full liquids at the time of discharge without complaints of abdominal pain or nausea. He continued to have watery bowel movements throughout his hospital stay, but improved abdominal pain and distention with bowel sounds present on exam. DISPOSITION AND FOLLOWUP PLAN: The patient is being discharged to home. He is advised to maintain a soft and near liquid diet with a low fiber content until his symptoms completely resolved. He will follow up with Dr. Farmer in 1 to 2 weeks and his primary care provider as necessary. Empirically covering with Cipro and Flagyl for an additional 5 days following discharge. TIME SPENT: Greater than 30 minutes were spent on this discharge. AVELINA PADILLA [id number]/[facility] #: [id number] MARIUSZ
== END 2017-04-16 11:00 | disposition home or self-care (01) ==
LOC: ED 17:37 → SSU 04-15 01:38
PROVIDERS: ADMIT Internal Medicine; ATTEND Internal Medicine
DX: K56.609 Unspecified intestinal obstruction, unspecified as to partial versus complete obstruction (principal); K76.9 Liver disease, unspecified; Z79.899 Other long term (current) drug therapy; E03.9 Hypothyroidism, unspecified; J45.909 Unspecified asthma, uncomplicated; K50.90 Crohn's disease, unspecified, without complications; Z23 Encounter for immunization
CPT/HCPCS: 36415; 74000; 74177; 80048; 80053; 81003; 83605; 83690; 85025; 86140; 87040; 90471; 90686; 94640; 94760; 96365; 96366; 96367; 96375; 96376; 99283; A9270-GY; G0008; G0378; J0744; J1170; J2270; J2405; Q9967